=== PATIENT | female | born 1995 | race Caucasian/White ===

== ENCOUNTER 2017-10-26 22:09 | Emergency (ER) | payer BC ==
[~2017-10-26] VITALS: Ht 154.9 cm; Wt 57.5 kg
[~2017-10-26 22:09] MED LIST: DSWCR TOP; LEVO5TAB2 PO; NORT10CA2 PO; SERT25TA PO
[2017-10-26 22:13] VITALS: TEMP 36.9; Ht 154.9 cm; Wt 57.5 kg
[2017-10-26] MEDS ORDERED: IBUPROFEN 600 MG TAB PO STA (22:28)
[2017-10-26] MEDS ORDERED: COUGH DROP (SUGAR FREE) LOZ 24 LOZ/1 BOX LOZ STA (22:28)
--- NOTE | 2017-10-26 22:45 | DIAGNOSTIC IMAGING REPORT ---
CHEST ONE VIEW PORTABLE HISTORY: 22 years-old Female cough, flu symptoms acute cough with flulike symptoms COMPARISON: Chest radiograph 02/20/2015 TECHNIQUE: Portable AP view of the chest FINDINGS: Cardiomediastinal and hilar silhouettes are within normal limits. There is no pneumothorax, pleural effusion, focal airspace consolidation or overt pulmonary edema. The bones of the chest appear grossly intact. IMPRESSION: No acute process. The above report was generated using voice recognition software. It may contain grammatical, syntax or spelling errors. Electronically signed by: Dagoberto Perry M.D. 10/26/2017 10:44 PM Dictated Date/Time: 10/26/2017 10:43 PM
[2017-10-27 00:33] LABS: INFLUENZA B ANTIGEN Neg for Influ B (NEG)
[2017-10-27 00:39] VITALS: BP 120/72; PULSE 93; O2SAT 96
--- NOTE | 2017-10-27 02:16 | EMERGENCY ROOM VISIT NOTE ---
History Report prepared by Chelsea: John Whitley Under the Supervision of: Dr. Krish Choi M.D. First contact with patient: 22:15 Chief Complaint: FLU LIKE SX Stated Complaint: CHILLS,HEADACHE,CONGESTION,SORE THROAT History of Present Illness The patient is a 22 year old female who presents to the Emergency Room with complaints of constant flu-like symptoms beginning 5 days ago. The patient states that she woke up 5 days ago feeling weak, causing her to stay home from work. She notes that she felt fine for the rest of the week, but that her symptoms returned last night. She reports that last night she began to feel very congested. The patient states that she then woke up this morning with a headache, with which she took Advil at 0800 with no relief of her symptoms. She notes that her symptoms began to worsen again at 1700 again this evening. She complains of a bilateral sore throat, chills, cough, body aches, and mild nausea. 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 She denies any known sick contacts infected with strep. The patient states that she is still taking Zoloft, and that she tried to take Mucinex but was unable to because of her sorethroat. She notes that she has a history of tonsillitis. Pt denies LOC, fevers, diaphoresis, visual changes, neck pain, chest pain, breathing difficulties, vomiting, abdominal pain, back pain, melena , hematochezia, urinary symptoms, numbness, lymphadenopathy, rash, or other complaints. Source of History: patient Onset: 5 days ago Position: other (global) Quality: other (flu-like symptoms) Timing: constant Associated Symptoms: + chills, + headache, + sorethroat (bilateral), + cough , + nausea (mild), + weakness Note: She also complains of congestion and body aches. Review of Systems See HPI for pertinent positives and negatives. A total of ten systems were reviewed and were otherwise negative. Past Medical & Surgical Medical Problems: (1) Abdominal Pain, Epigastric (2) Abdominal Pain, Right Lower Quadrant (3) Acute chest wall pain (4) Chronic Tonsillitis (5) Depression (6) Rash of face Surgical Problems: (1) S/P tonsillectomy Family History Diabetes mellitus FHx: cancer FHx: gallbladder disease Hypertension Kidney disease Kidney stones Social History Smoking Status: Never Smoker Alcohol Use: none Drug Use: none Marital Status: single Housing Status: lives with family Occupation Status: employed Current/Historical Medications Scheduled Levocetirizine Dihydrochloride (Xyzal), 5 MG PO QPM Nortriptyline (Pamelor), 30 MG PO HS Sertraline (Zoloft), 25 MG PO DAILY Scheduled PRN Desonide 0.05% (Desowen 0.05%), 1 APPLN TOP BID PRN for Affected Skin Folds Allergies Coded Allergies: Azithromycin (Verified Allergy, Intermediate, HIVES, 10/26/17) Physical Exam Vital Signs Date Time Temp Pulse Resp B/P (MAP) Pulse Ox O2 Delivery O2 Flow Rate FiO2 10/27/17 00:39 93 16 120/72 96 Room Air 10/27/17 00:30 88/57 10/27/17 00:24 95 96 10/27/17 00:09 96 18 97 10/27/17 00:00 113/63 10/26/17 23:57 121/71 10/26/17 22:13 36.9 105 20 131/77 96 Room Air Physical Exam GENERAL: Awake, alert, mildly ill appearing, no distress HEAD: Normocephalic, atraumatic. No edema. EYES: Normal conjunctiva. Sclera non-icteric. EARS: Right TM normal. Left TM normal. NOSE: Moderate nasal congestion. OROPHARYNX: Lips, tongue, and mucosa unremarkable. No erythema or exudate. NECK: Supple. No nuchal rigidity. FROM. No adenopathy. Negative jolt accentuation test. RESPIRATORY: CTA bilaterally. No wheezes rales or rhonchi. CARDIAC: Borderline tachycardic rate, normal rhythm. ABDOMEN: Soft, non distended. No tenderness to palpation. NEURO: Normal sensorium. SKIN: No rash or jaundice noted Medical Decision & Procedures ER Provider Diagnostic Interpretation: Radiology results as stated below per my review and radiologist interpretation: CHEST ONE VIEW PORTABLE HISTORY: 22 years-old Female cough, flu symptoms acute cough with flulike symptoms COMPARISON: Chest radiograph 02/20/2015 TECHNIQUE: Portable AP view of the chest FINDINGS: Cardiomediastinal and hilar silhouettes are within normal limits. There is no pneumothorax, pleural effusion, focal airspace consolidation or overt pulmonary edema. The bones of the chest appear grossly intact. IMPRESSION: No acute process. The above report was generated using voice recognition software. It may contain grammatical, syntax or spelling errors. Electronically signed by: Dagoberto Perry M.D. 10/26/2017 10:44 PM Laboratory Results Test 10/26/17 22:56 Influenza Type A Antigen Neg for Influ A (NEG) Influenza Type B Antigen Neg for Influ B (NEG) Laboratory results reviewed by me Medications Administered Medications (Trade) Dose Ordered Sig/Helena Route Start Time Stop Time Status Last Admin Dose Admin Ibuprofen (Motrin Tab) 600 mg NOW STAT PO 10/26/17 22:28 10/26/17 22:30 DC 10/26/17 23:11 600 MG Menthol (Nice Lauren) 1 lauren NOW STAT LAUREN 10/26/17 22:28 10/26/17 22:30 DC 10/26/17 23:11 1 LAUREN ED Course 2225: The patient was evaluated in room A11. A complete history and physical exam was performed. 2228: Menthol 1 lauren LAUREN, Ibuprofen 600mg PO 0035: I reevaluated and updated the patient 0100: I reevaluated the patient. Discussed results and discharge instructions: she verbalized understanding and agreement. The patient is ready for discharge. Medical Decision Prior records/ancillary studies reviewed. Triage Nursing notes reviewed and agree them. Additional history obtained from family. The patient's history was concerning for flulike symptoms. Differential diagnosis: Etiologies such as viral syndrome, pneumonia, influenza,otitis, pharyngitis, meningitis, urinary tract infection, sepsis, bacteremia, as well as others were entertained. Physical examination: As above. Moderate nasal congestion. No meningeal findings. ER treatment provided: Oral Motrin Cepacol lozenge On reassessment the patient felt better. Diagnostics interpreted by me: The labs revealed a negative rapid strep and negative flu test. Imaging studies: X-ray as above The patient has flulike/URI symptoms. She is doing well. Conservative management was discussed in light of a negative chest x-ray and rapid strep test. She has no meningeal findings on examination. She has a benign abdomen.I gave my usual and customary discussion regarding this issue. By the evaluation outlined above other emergent etiologies such as those listed in the differential, as well as others, were deemed relatively unlikely. The patient was educated about the findings as listed above. All questions were answered and the patient was pleased with the treatment. Return instructions were outlined and the patient was discharged in stable condition. The patient was referred to her PCP for follow-up for a recheck of the current condition. Medication Reconcilliation Current Medication List: was personally reviewed by me Blood Pressure Screening Patient's blood pressure: Normal blood pressure Blood pressure disposition: Did not require urgent referral Impression Primary Impression: Upper respiratory infection Additional Impression: Influenza-like symptoms Scribe Attestation The scribe's documentation has been prepared under my direction and personally reviewed by me in its entirety. I confirm that the note above accurately reflects all work, treatment, procedures, and medical decision making performed by me. Departure Information Dispostion Home / Self-Care Referrals Ramakrishna Chatterjee M.D. (PCP) Forms HOME CARE DOCUMENTATION FORM, IMPORTANT VISIT INFORMATION Patient Instructions [facility] Additional Instructions UPPER RESPIRATORY INFECTION INSTRUCTIONS: Acetaminophen(Tylenol) may be used for fever or pain. Use 1000mg every six hours as needed. Avoid using more than 4000mg in a 24 hour period. (AND/OR) Ibuprofen(Motrin, Advil) may be used for fever or pain. Use 600mg every six hours as needed. Take with food. Avoid using more than 2400mg in a 24 hour period. Do not use 2400mg per day for more than three consecutive days without physician direction. Prolonged inappropriate use can lead to stomach upset or ulcers. Afrin nasal spray: 2-3 sprays to each nostril twice daily as needed for congestion. Do not use for more than 3-4 days because it can lead to worsening rebound congestion. Pseudoephedrine(Sudaphed): 30-60mg every 6 hours as needed for nasal congestion. Do not take this with other stimulant products or supplements. Rest and drink plenty of fluids. Controlling your fever with Tylenol and Ibuprofen as above will make you feel better. Wash your hands after nose blowing, sneezing, or coughing. Most germs are spread through contact, therefore improper hygiene may result in your close contacts and loved ones becoming ill just like you. Return to the ER for severe headache, neck stiffness, chest pain, difficulty breathing, fevers, vomiting, worsening of your condition, or as needed. Follow up with your primary physician this week for a recheck of your current condition. Problem Qualifiers
== END 2017-10-27 01:00 | disposition home or self-care (01) ==
LOC: C.EDB 22:11 → C.EDA 10-27 01:00
DX: J06.9 Acute upper respiratory infection, unspecified (principal); Z83.3 Family history of diabetes mellitus; Z82.49 Family history of ischemic heart disease and other diseases of the circulatory system; Z84.1 Family history of disorders of kidney and ureter; Z83.79 Family history of other diseases of the digestive system